=== PATIENT | male | born 1955 | race Caucasian/White ===

== ENCOUNTER 2017-03-19 17:57 | Inpatient (IN) ==
[2017-03-19 18:58] LABS: Basophils # 0.1 10*3/uL (0.0-0.2); Basophils % 1.2 % (0.0-0.8); Eosinophils # 0.2 10*3/uL (0.0-0.87); Eosinophils % 3.6 % (0.00-10.9); Hematocrit 31.6 VOL% (42.0-52.0); Hemoglobin 11.3 GM/DL (14.0-18.0); Immature Granulocytes % 0.2 %; Immature Granulocytes Absolute 0.01 #; Lymphocytes # 0.7 10*3/uL (1.4-4.0); Lymphocytes % 15.6 % (21.2-54.2); Mean Corpuscular HGB Conc 35.8 GM/DL (32-36); Mean Corpuscular Hemoglobin 38 PG (27-34); Mean Corpuscular Volume 105.7 FL (87-102); Mean Platelet Volume 11.1 FL (9.6-12.0); Monocytes # 0.4 10*3/uL (0.11-0.8); Monocytes % 10.3 % (1.7-12.7); Neutrophils # 2.9 10*3/uL (1.4-7.4); Neutrophils % 69.1 % (38.7-73.9); Red Blood Count 2.99 MC/CUMM (3.8-5.5); Red Cell Distribution Width 15.6 % (9.3-17.3); White Blood Count 4.2 T/CUMM (4-12)
[2017-03-19 18:59] LABS: Platelet Count 47 T/CUMM (130-400)
[2017-03-19 19:07] LABS: INR 1.6; PT Patient Result 16.2 SECS; Partial Thromboplastin Time 36.9 SECS (0-40)
[2017-03-19 19:09] LABS: Albumin 1.9 G/DL (3.4-5.0); Bilirubin,Total 9.5 MG/DL (0.2-1.0); Calcium 6.9 MG/DL (8.5-10.1); Magnesium 1.4 MG/DL (1.8-2.4); Osmolality,Calculated 264.5 MOS/KG (273-304); Total Protein 6.2 G/DL (6.4-8.3)
[2017-03-19 19:33] LABS: Platelet Estimate Decreased
[2017-03-19] MEDS ORDERED: POTASSIUM CHLORIDE 20 MEQ TABLET PO STA (19:49)
[2017-03-19] MEDS ORDERED: POTASSIUM CHLORIDE 20 MEQ TABLET PO ONE ×2 (20:01→23:00)
[2017-03-19] MEDS ORDERED: ONDANSETRON 4 MG/2 ML VIAL IV PRN (20:50)
[2017-03-19] MEDS ORDERED: MAGNESIUM SULF RIDER 2 GM in PREMIX 1 EACH IV ONE (20:54)
[2017-03-19] MEDS: CLORAZEPATE 7.5 MG TABLET PO SCH (23:21)
[2017-03-19] MEDS: LACTULOSE 20 GM/30 ML UDCUP PO SCH (23:22)
[2017-03-20] MEDS: POTASSIUM CHLORIDE RIDER 10 MEQ in PREMIX 1 EACH IV SCH ×3 (02:32→04:44)
[2017-03-20 05:07] LABS: Amorphous Crystals,Urine Occasional /HPF (Few); Apearance,Urine CLEAR (Clear); Bilirubin,Urine Negative (Negative); Blood, Urine Negative (Negative); Glucose,Urine (UA) Negative (Negative); Ketones,Urine Negative (Negative); Mucus,Urine Occasional /LPF (Occasional); Nitrite,Urine Negative (Negative); Protein,Urine Negative; RBC,Urine <1 /HPF (0-4); Squamous Epithelial Cell,Urine Occasional /HPF (0-10); Urine Color Amber (Yellow); Urine Specific Gravity 1.008 (1.001-1.035); WBC,Urine 1 /HPF (0-6)
[2017-03-20] MEDS: POTASSIUM CHLORIDE 20 MEQ TABLET PO SCH ×2 (06:20→10:29)
[2017-03-20 07:57] LABS: Basophils % 1.1 % (0.0-0.8); Eosinophils # 0.2 10*3/uL (0.0-0.87); Hematocrit 30.2 VOL% (42.0-52.0); Hemoglobin 10.7 GM/DL (14.0-18.0); Immature Granulocytes % 0.3 %; Immature Granulocytes Absolute 0.01 #; Lymphocytes # 0.8 10*3/uL (1.4-4.0); Lymphocytes % 22.2 % (21.2-54.2); Mean Corpuscular HGB Conc 35.4 GM/DL (32-36); Mean Corpuscular Hemoglobin 37 PG (27-34); Mean Corpuscular Volume 105.6 FL (87-102); Mean Platelet Volume 10.4 FL (9.6-12.0); Monocytes # 0.4 10*3/uL (0.11-0.8); Neutrophils # 2.2 10*3/uL (1.4-7.4); Neutrophils % 60.4 % (38.7-73.9); Red Blood Count 2.86 MC/CUMM (3.8-5.5); Red Cell Distribution Width 15.8 % (9.3-17.3); White Blood Count 3.7 T/CUMM (4-12)
[2017-03-20 07:59] LABS: Platelet Count 47 T/CUMM (130-400)
[2017-03-20 08:29] LABS: Magnesium 1.9 MG/DL (1.8-2.4)
[2017-03-20 08:35] LABS: Albumin 1.9 G/DL (3.4-5.0); Bilirubin,Total 9.4 MG/DL (0.2-1.0); Calcium 7.3 MG/DL (8.5-10.1); Osmolality,Calculated 260.5 MOS/KG (273-304); Potassium 2.9 MMOL/L (3.5-5.1); Total Protein 6.1 G/DL (6.4-8.3)
[2017-03-20] MEDS: MULTIVITAMIN (CENTRUM) TABLET PO SCH (10:29)
[2017-03-20] MEDS: FOLIC ACID 1 MG TABLET PO SCH (10:29)
[2017-03-20] MEDS: PANTOPRAZOLE 40 MG TABLET PO SCH (10:29)
[2017-03-20] MEDS: THIAMINE 100 MG TABLET PO SCH (10:29)
[2017-03-20] MEDS: CLORAZEPATE 7.5 MG TABLET PO SCH ×4 (10:30→21:02)
[2017-03-20] MEDS: LACTULOSE 20 GM/30 ML UDCUP PO SCH ×2 (10:30→21:03)
[2017-03-20] MEDS: LORazepam 2 MG/1 ML VIAL IV PRN (21:02)
[2017-03-20] MEDS: SPIRONOLACTONE 25 MG TABLET PO SCH (21:02)
[2017-03-21 06:55] LABS: Basophils % 1.3 % (0.0-0.8); Eosinophils # 0.1 10*3/uL (0.0-0.87); Eosinophils % 5.6 % (0.00-10.9); Hematocrit 29.5 VOL% (42.0-52.0); Immature Granulocytes % 0.4 %; Immature Granulocytes Absolute 0.01 #; Lymphocytes # 0.6 10*3/uL (1.4-4.0); Lymphocytes % 24.2 % (21.2-54.2); Mean Corpuscular HGB Conc 33.9 GM/DL (32-36); Mean Corpuscular Hemoglobin 37 PG (27-34); Mean Corpuscular Volume 108.9 FL (87-102); Mean Platelet Volume 10.3 FL (9.6-12.0); Monocytes # 0.3 10*3/uL (0.11-0.8); Monocytes % 13.9 % (1.7-12.7); Neutrophils # 1.3 10*3/uL (1.4-7.4); Neutrophils % 54.6 % (38.7-73.9); Red Blood Count 2.71 MC/CUMM (3.8-5.5); Red Cell Distribution Width 16.5 % (9.3-17.3); White Blood Count 2.3 T/CUMM (4-12)
[2017-03-21 07:16] LABS: Platelet Count 36 T/CUMM (130-400)
[2017-03-21 07:20] LABS: Calcium 7.5 MG/DL (8.5-10.1); Magnesium 1.9 MG/DL (1.8-2.4); Osmolality,Calculated 268.8 MOS/KG (273-304); Potassium 2.9 MMOL/L (3.5-5.1)
[2017-03-21 07:25] LABS: Albumin 1.8 G/DL (3.4-5.0); Bilirubin,Direct 4.58 MG/DL (0.0-0.20); Bilirubin,Indirect 4.1 MG/DL (0.0-1.0); Bilirubin,Total 8.7 MG/DL (0.2-1.0); Total Protein 5.5 G/DL (6.4-8.3)
[2017-03-21 07:27] LABS: Hypochromasia 1+
[2017-03-21] MEDS: CLORAZEPATE 7.5 MG TABLET PO SCH ×4 (11:19→20:14)
[2017-03-21] MEDS: POTASSIUM CHLORIDE 20 MEQ TABLET PO SCH (11:19)
[2017-03-21] MEDS: MULTIVITAMIN (CENTRUM) TABLET PO SCH (11:19)
[2017-03-21] MEDS: PANTOPRAZOLE 40 MG TABLET PO SCH (11:19)
[2017-03-21] MEDS: FOLIC ACID 1 MG TABLET PO SCH (11:20)
[2017-03-21] MEDS: THIAMINE 100 MG TABLET PO SCH (11:20)
[2017-03-21] MEDS: LACTULOSE 20 GM/30 ML UDCUP PO SCH ×2 (11:20→20:14)
[2017-03-21] MEDS: FUROSEMIDE 40 MG/5 ML UDCUP PO SCH (11:20)
[2017-03-21] MEDS: SPIRONOLACTONE 25 MG TABLET PO SCH ×2 (11:20→20:14)
[2017-03-21] MEDS: POTASSIUM CHLORIDE RIDER 10 MEQ in PREMIX 1 EACH IV PRN ×5 (11:28→22:05)
[2017-03-21] MEDS ORDERED: MAGNESIUM SULF RIDER 2 GM in PREMIX 1 EACH IV ONE (11:49)
[2017-03-21] MEDS ORDERED: POTASSIUM CHLORIDE 20 MEQ PACK PO ONE (11:49)
[2017-03-21] MEDS: LORazepam 2 MG/1 ML VIAL IV PRN ×2 (15:04→20:15)
[2017-03-22] MEDS: LORazepam 2 MG/1 ML VIAL IV PRN ×2 (01:00→06:19)
[2017-03-22] MEDS: POTASSIUM CHLORIDE RIDER 10 MEQ in PREMIX 1 EACH IV PRN ×2 (06:14→08:34)
[2017-03-22] MEDS: POTASSIUM CHLORIDE RIDER 10 MEQ in PREMIX 1 EACH IV SCH (07:34)
[2017-03-22 08:18] VITALS: BP 111/63
[2017-03-22] MEDS: SPIRONOLACTONE 25 MG TABLET PO SCH (08:33)
[2017-03-22] MEDS: LACTULOSE 20 GM/30 ML UDCUP PO SCH ×2 (08:33→08:41)
[2017-03-22] MEDS: POTASSIUM CHLORIDE 20 MEQ TABLET PO SCH (08:33)
[2017-03-22] MEDS: PANTOPRAZOLE 40 MG TABLET PO SCH (08:33)
[2017-03-22] MEDS: MULTIVITAMIN (CENTRUM) TABLET PO SCH (08:33)
[2017-03-22] MEDS: CLORAZEPATE 7.5 MG TABLET PO SCH (08:33)
[2017-03-22] MEDS: FOLIC ACID 1 MG TABLET PO SCH (08:33)
[2017-03-22] MEDS: THIAMINE 100 MG TABLET PO SCH (08:33)
[2017-03-22] MEDS: FUROSEMIDE 40 MG/5 ML UDCUP PO SCH (08:37)
[2017-03-22] MEDS ORDERED: LEVOFLOXACIN 500 MG TABLET PO ONE (09:54)
== END 2017-03-22 11:15 | disposition swing bed (61) | DRG 641 ==
LOC: EDUNIT# → EDBD → N.ED 17:57 → N.EDINP 20:50 → N.4E 22:19
PROVIDERS: ADMIT Internal Medicine; ATTEND Internal Medicine